=== PATIENT | male | born 2000 | race Caucasian/White ===

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

== ENCOUNTER 2022-02-22 17:58 | Emergency (ER) | payer OTHER ==
[~2022-02-22] VITALS: Ht 185.4 cm; Wt 114.0 kg
[2022-02-22 18:10] VITALS: BP 138/75
[2022-02-22 19:24] LABS: BASOPHILS % 0.7 % (0.0-2.0); EOSINOPHILS % 0.2 % (0.0-5.0); HEMATOCRIT. 44.5 % (42.0-52.0); LYMPHOCYTES % 15.5 % (20.0-50.0); MEAN CORPUSCULAR HEMOGLOBIN 25.8 pg (28.0-32.0); MEAN CORPUSCULAR VOLUME 76.5 fL (80.0-94.0); MEAN PLATELET VOLUME 7.8 fl (7.4-10.4); MONOCYTES % 7.3 % (2.0-8.0); NEUTROPHILS % 76.3 % (40.0-76.0); PLATELET 294 x1000/uL (130-400); RED BLOOD CELL COUNT 5.82 mill/uL (4.7-6.1); RED CELL DISTRIBUTION WIDTH 13.3 % (11.6-14.6)
[2022-02-22 19:33] LABS: CHLORIDE 105 mEq/L (98-107)
[2022-02-22] MEDS ORDERED: MAG-55 PO ×3 (21:19→22:00)
[2022-02-22] MEDS ORDERED: ONDA4TAB11 PO ×3 (21:19→22:00)
[2022-02-22] MEDS ORDERED: OMEP20TA23 MT ×3 (21:19→22:00)
== END 2022-02-22 22:09 | disposition home or self-care (01) ==
LOC: ER 17:58
DX: R10.9 Unspecified abdominal pain (principal)
CPT/HCPCS: 36415; 80053; 85025; 93005; 99284